=== PATIENT | female | born 1945 | race Caucasian/White ===

== ENCOUNTER 2017-11-07 20:48 | Inpatient (IN) | payer MEDICARE, MEDICAID ==
[~2017-11-07] VITALS: Ht 149.9 cm; Wt 61.0 kg
[~2017-11-07 20:48] MED LIST: ALBU8.5H8 IH; AZIT250T PO; HYDR-569 PO; OMEP20CA10 PO; ZOL50T PO
[2017-11-07 21:27] LABS: BASOPHILS # (AUTO) 0.2 X10'3 (0-0.2); BASOPHILS % (AUTO) 0.7 % (0-1); EOSINOPHILS % (AUTO) 0 % (0-6); HEMATOCRIT 42.8 % (35.0-45.0); HEMOGLOBIN 14.6 g/dl (12.0-16.0); LYMPHOCYTES # (AUTO) 0.6 X10'3 (1.1-4.8); LYMPHOCYTES % (AUTO) 1.9 % (21-51); MEAN CORPUSCULAR HEMOGLOBIN 28.8 PG (27.0-31.0); MEAN CORPUSCULAR HGB CONC 34.1 % (33.0-36.5); MEAN CORPUSCULAR VOLUME 84.6 FL (78-98); MEAN PLATELET VOLUME 6.9 FL (7.4-10.4); MONOCYTES # (AUTO) 0.3 X10'3 (0-0.9); NEUTROPHILS # (AUTO) 30.2 X10'3 (1.8-7.7); NEUTROPHILS % (AUTO) 96.4 % (42-75); PLATELET COUNT 496 X10'3 (140-440); RED BLOOD COUNT 5.06 X10'6 (4.20-5.60); RED CELL DISTRIBUTION WIDTH 14.8 % (11.5-14.5)
[2017-11-07 21:37] LABS: WHITE BLOOD COUNT 31.3 X10'3 (4.5-11.0)
[2017-11-07 21:39] LABS: PARTIAL THROMBOPLASTIN TIME 28 SECONDS (22-32); PROTHROMBIN TIME 10.8 SECONDS (9.0-12.0)
[2017-11-07] MEDS ORDERED: albuterol 2.5 MG/3 ML nebule CONTNEB PRN (21:40)
[2017-11-07] MEDS ORDERED: ipratropium 0.5 MG/2.5ML nebule IH ONE (21:40)
[2017-11-07] MEDS ORDERED: methylPREDNISolone sod succ 125mg/2ml vial IV ONE (21:40)
[2017-11-07 21:43] LABS: GLUCOSE 164 MG/DL (70-104)
[2017-11-07 21:44] LABS: ALANINE AMINOTRANSFERASE 20 U/L (12-78); ALBUMIN 3.7 G/DL (3.4-5.0); ALBUMIN/GLOBULIN RATIO 0.9 (1.1-1.5); ALKALINE PHOSPHATASE 86 IU/L (46-116); ANION GAP 14 (8-16); ASPARTATE AMINO TRANSFERASE 11 U/L (10-37); BLOOD UREA NITROGEN 17 MG/DL (7-18); BUN/CREATININE RATIO 17.9 (6.6-38.0); CALCIUM 9.3 MG/DL (8.5-10.1); CHLORIDE 97 MMOL/L (99-107); CREATININE 0.95 MG/DL (0.40-0.90); POTASSIUM 3.4 MMOL/L (3.5-5.1); SODIUM 136 MMOL/L (135-145); TOTAL CARBON DIOXIDE 25.3 MMOL/L (24-32); eGFR 58 ML/MIN
[2017-11-07 22:00] LABS: TOTAL CELLS COUNTED 100
[2017-11-07 22:02] LABS: PLATELET ESTIMATE INCREASED; TOXIC GRANULATION 1+; TOXIC VACUOLATION 1+
[2017-11-07] MEDS ORDERED: potassium chloride 10mEq CAPSULE.SA PO SCH (22:40)
[2017-11-07] MEDS ORDERED: potassium Cl 20 mEq SR tablet PO STA (22:53)
[2017-11-07] MEDS ORDERED: levoFLOXACIN-Levaquin 750MG/D5 150 ML IV SCH (22:58)
[2017-11-07] MEDS ORDERED: mag hydrox/Alum hydrox/simeth 30ml oral suspension PO PRN (23:55)
[2017-11-07] MEDS ORDERED: dextrose 50%-water 50ml dispensing syringe IV PRN ×2 (23:55)
[2017-11-07] MEDS ORDERED: ipratropium/albuterol 3ml nebule NEB PRN (23:55)
[2017-11-07] MEDS ORDERED: acetaminophen 325mg tablet PO PRN (23:55)
[2017-11-07] MEDS ORDERED: magnesium 4gm in 100ml NS 100 ML IV PRN (23:55)
[2017-11-07] MEDS ORDERED: glucagon, human recombinant 1mg kit SUBCUT PRN (23:55)
[2017-11-07] MEDS ORDERED: potassium Cl 20 mEq SR tablet PO PRN ×2 (23:55)
[2017-11-07] MEDS ORDERED: magnesium hydroxide 30ml (MOM) UD suspension PO PRN (23:55)
[2017-11-07] MEDS ORDERED: magnesium 2GM in 50ml NS 50 ML IV PRN (23:55)
[2017-11-07] MEDS ORDERED: insulin Lispro (HumaLOG) vial - multi-dose SQ SCH (23:55)
[2017-11-07] MEDS ORDERED: potassium Cl 40MEQ/NS 500ml 500 ML IV PRN ×2 (23:55)
[2017-11-07] MEDS ORDERED: dextrose ORAL solution 15 GM/59 ML bottle PO PRN ×2 (23:55)
[2017-11-07] MEDS ORDERED: MESSAGE TO PHARMACY PO ONE (23:55)
[2017-11-07] MEDS ORDERED: ondansetron/PF 4mg/2ml inj IV PRN (23:55)
[2017-11-08] MEDS: heparin, porcine 5000 units/ml vial SQ SCH ×3 (00:28→17:43)
[2017-11-08] MEDS: metroNIDAZOLE-Flagyl 500mg/NS 100 ML IV SCH ×3 (00:32→17:38)
[2017-11-08] MEDS: methylPREDNISolone sod succ 125mg/2ml vial IV SCH ×4 (02:31→20:48)
[2017-11-08 03:04] LABS: BASOPHILS # (AUTO) 0.1 X10'3 (0-0.2); BASOPHILS % (AUTO) 0.5 % (0-1); EOSINOPHILS # (AUTO) 0.2 X10'3 (0-0.9); EOSINOPHILS % (AUTO) 0.6 % (0-6); HEMATOCRIT 40.7 % (35.0-45.0); LYMPHOCYTES # (AUTO) 0.4 X10'3 (1.1-4.8); LYMPHOCYTES % (AUTO) 1.3 % (21-51); MEAN CORPUSCULAR HEMOGLOBIN 29.1 PG (27.0-31.0); MEAN CORPUSCULAR HGB CONC 34.5 % (33.0-36.5); MEAN CORPUSCULAR VOLUME 84.2 FL (78-98); MEAN PLATELET VOLUME 7.1 FL (7.4-10.4); MONOCYTES # (AUTO) 0.9 X10'3 (0-0.9); MONOCYTES % (AUTO) 2.8 % (2-12); NEUTROPHILS # (AUTO) 29.5 X10'3 (1.8-7.7); NEUTROPHILS % (AUTO) 94.8 % (42-75); PLATELET COUNT 466 X10'3 (140-440); RED BLOOD COUNT 4.83 X10'6 (4.20-5.60)
[2017-11-08 03:11] LABS: WHITE BLOOD COUNT 31.1 X10'3 (4.5-11.0)
[2017-11-08 03:13] LABS: HEMOGLOBIN A1C 5.9 % (4.5-6.2)
[2017-11-08 03:42] LABS: ALANINE AMINOTRANSFERASE 17 U/L (12-78); ALBUMIN 3.2 G/DL (3.4-5.0); ALBUMIN/GLOBULIN RATIO 0.7 (1.1-1.5); ALKALINE PHOSPHATASE 80 IU/L (46-116); ANION GAP 13 (8-16); ASPARTATE AMINO TRANSFERASE 11 U/L (10-37); BILIRUBIN,TOTAL 1.3 MG/DL (0.1-1.0); BLOOD UREA NITROGEN 16 MG/DL (7-18); BUN/CREATININE RATIO 15.4 (6.6-38.0); CALCIUM 9.2 MG/DL (8.5-10.1); CHLORIDE 99 MMOL/L (99-107); CREATININE 1.04 MG/DL (0.40-0.90); GLUCOSE 185 MG/DL (70-104); MAGNESIUM 1.8 MG/DL (1.5-2.4); POTASSIUM 3.5 MMOL/L (3.5-5.1); SODIUM 136 MMOL/L (135-145); TOTAL CARBON DIOXIDE 24.2 MMOL/L (24-32); TOTAL PROTEIN 7.5 G/DL (6.4-8.2); eGFR 52 ML/MIN
[2017-11-08] MEDS: ziprasidone IM 20mg inj **IM only IM SCH (04:43)
[2017-11-08] MEDS: pantoprazole 40 MG vial IV SCH (05:58)
[2017-11-08] MEDS: K and/or MAG REPLACEMENT MC SCH (08:00)
[2017-11-08] MEDS: lactobacillus rhamnosus 10,000 MMU CELLS/CAPSULE PO SCH ×2 (08:09→20:48)
[2017-11-08] MEDS ORDERED: ESCI20TA PO (09:24)
[2017-11-08] MEDS ORDERED: FLUT50DI PO (09:24)
[2017-11-08] MEDS ORDERED: OMEP20TA5 PO (09:24)
[2017-11-08] MEDS ORDERED: OXYB5TAB11 PO (09:24)
[2017-11-08] MEDS ORDERED: AZIT-57 PO (09:24)
[2017-11-08] MEDS ORDERED: IPRA3AMP IH (09:24)
[2017-11-08] MEDS ORDERED: CYCL5TAB PO (09:24)
[2017-11-08] MEDS: HYDROcodone/acetaminophen 5mg/325mg tablet PO PRN (17:43)
[2017-11-08 20:00] VITALS: BP 117/53
[2017-11-08] MEDS: insulin glargine (Lantus) pen - multi-dose SQ SCH (21:00)
[2017-11-09] VITALS: BP 110/58
[2017-11-09] MEDS: heparin, porcine 5000 units/ml vial SQ SCH ×3 (00:03→15:42)
[2017-11-09] MEDS: metroNIDAZOLE-Flagyl 500mg/NS 100 ML IV SCH ×3 (00:11→15:41)
[2017-11-09] MEDS: methylPREDNISolone sod succ 125mg/2ml vial IV SCH ×2 (02:36→07:54)
[2017-11-09] MEDS: ziprasidone IM 20mg inj **IM only IM SCH (04:15)
[2017-11-09 05:58] LABS: BASOPHILS # (AUTO) 0.3 X10'3 (0-0.2); BASOPHILS % (AUTO) 1.2 % (0-1); EOSINOPHILS # (AUTO) 0.3 X10'3 (0-0.9); EOSINOPHILS % (AUTO) 1.1 % (0-6); HEMATOCRIT 34.9 % (35.0-45.0); HEMOGLOBIN 12.2 g/dl (12.0-16.0); LYMPHOCYTES # (AUTO) 0.5 X10'3 (1.1-4.8); LYMPHOCYTES % (AUTO) 2.1 % (21-51); MEAN CORPUSCULAR HEMOGLOBIN 29.5 PG (27.0-31.0); MEAN CORPUSCULAR HGB CONC 34.8 % (33.0-36.5); MEAN CORPUSCULAR VOLUME 84.6 FL (78-98); MEAN PLATELET VOLUME 7.7 FL (7.4-10.4); MONOCYTES # (AUTO) 0.7 X10'3 (0-0.9); MONOCYTES % (AUTO) 2.8 % (2-12); NEUTROPHILS # (AUTO) 23.8 X10'3 (1.8-7.7); NEUTROPHILS % (AUTO) 92.8 % (42-75); PLATELET COUNT 394 X10'3 (140-440); RED BLOOD COUNT 4.13 X10'6 (4.20-5.60); RED CELL DISTRIBUTION WIDTH 15.4 % (11.5-14.5)
[2017-11-09 06:35] LABS: WHITE BLOOD COUNT 25.7 X10'3 (4.5-11.0)
[2017-11-09 06:37] LABS: ALANINE AMINOTRANSFERASE 11 U/L (12-78); ALBUMIN 2.6 G/DL (3.4-5.0); ALBUMIN/GLOBULIN RATIO 0.7 (1.1-1.5); ALKALINE PHOSPHATASE 65 IU/L (46-116); ANION GAP 7 (8-16); ASPARTATE AMINO TRANSFERASE 9 U/L (10-37); BILIRUBIN,TOTAL 0.6 MG/DL (0.1-1.0); BLOOD UREA NITROGEN 23 MG/DL (7-18); BUN/CREATININE RATIO 25.8 (6.6-38.0); CHLORIDE 106 MMOL/L (99-107); CREATININE 0.89 MG/DL (0.40-0.90); GLUCOSE 137 MG/DL (70-104); MAGNESIUM 2.3 MG/DL (1.5-2.4); POTASSIUM 4.5 MMOL/L (3.5-5.1); SODIUM 139 MMOL/L (135-145); TOTAL CARBON DIOXIDE 25.7 MMOL/L (24-32); TOTAL PROTEIN 6.3 G/DL (6.4-8.2); eGFR 63 ML/MIN
[2017-11-09 06:51] VITALS: BP 117/69
[2017-11-09] MEDS: pantoprazole 40 MG vial IV SCH (07:54)
[2017-11-09] MEDS: lactobacillus rhamnosus 10,000 MMU CELLS/CAPSULE PO SCH ×2 (07:54→20:43)
[2017-11-09] MEDS: K and/or MAG REPLACEMENT MC SCH (07:55)
[2017-11-09 08:31] LABS: PLATELET ESTIMATE NORMAL; TOTAL CELLS COUNTED 100
[2017-11-09 08:32] LABS: TOXIC GRANULATION 2+; TOXIC VACUOLATION FEW
[2017-11-09 11:50] VITALS: BP 110/65
[2017-11-09] MEDS: methylPREDNISolone sod succ/PF 40mg inj. IV SCH (15:41)
[2017-11-09 20:00] VITALS: BP 146/81
[2017-11-09] MEDS ORDERED: levoFLOXACIN-Levaquin 750MG/D5 150 ML IV SCH (20:00)
[2017-11-09] MEDS: insulin glargine (Lantus) pen - multi-dose SQ SCH (21:00)
[2017-11-09] MEDS: HYDROcodone/acetaminophen 5mg/325mg tablet PO PRN (21:49)
[2017-11-10] VITALS: BP 125/57
[2017-11-10] MEDS: metroNIDAZOLE-Flagyl 500mg/NS 100 ML IV SCH ×2 (01:27→07:26)
[2017-11-10] MEDS: heparin, porcine 5000 units/ml vial SQ SCH ×3 (01:28→16:56)
[2017-11-10] MEDS: methylPREDNISolone sod succ/PF 40mg inj. IV SCH ×3 (01:28→16:56)
[2017-11-10] MEDS: pantoprazole 40 MG vial IV SCH (05:25)
[2017-11-10 05:48] LABS: BASOPHILS # (AUTO) 0.1 X10'3 (0-0.2); BASOPHILS % (AUTO) 0.5 % (0-1); EOSINOPHILS # (AUTO) 0.1 X10'3 (0-0.9); EOSINOPHILS % (AUTO) 0.4 % (0-6); HEMATOCRIT 36.3 % (35.0-45.0); HEMOGLOBIN 12.5 g/dl (12.0-16.0); LYMPHOCYTES # (AUTO) 0.5 X10'3 (1.1-4.8); LYMPHOCYTES % (AUTO) 2.1 % (21-51); MEAN CORPUSCULAR HEMOGLOBIN 29.3 PG (27.0-31.0); MEAN CORPUSCULAR HGB CONC 34.4 % (33.0-36.5); MEAN CORPUSCULAR VOLUME 85.1 FL (78-98); MEAN PLATELET VOLUME 7.8 FL (7.4-10.4); MONOCYTES # (AUTO) 0.6 X10'3 (0-0.9); MONOCYTES % (AUTO) 2.7 % (2-12); NEUTROPHILS % (AUTO) 94.3 % (42-75); PLATELET COUNT 429 X10'3 (140-440); RED BLOOD COUNT 4.27 X10'6 (4.20-5.60); RED CELL DISTRIBUTION WIDTH 15.5 % (11.5-14.5); WHITE BLOOD COUNT 23.3 X10'3 (4.5-11.0)
[2017-11-10 06:22] LABS: ALANINE AMINOTRANSFERASE 15 U/L (12-78); ALBUMIN 2.5 G/DL (3.4-5.0); ALBUMIN/GLOBULIN RATIO 0.7 (1.1-1.5); ALKALINE PHOSPHATASE 67 IU/L (46-116); ANION GAP 10 (8-16); ASPARTATE AMINO TRANSFERASE 11 U/L (10-37); BILIRUBIN,TOTAL 0.6 MG/DL (0.1-1.0); BLOOD UREA NITROGEN 22 MG/DL (7-18); BUN/CREATININE RATIO 29.3 (6.6-38.0); CALCIUM 8.8 MG/DL (8.5-10.1); CHLORIDE 106 MMOL/L (99-107); CREATININE 0.75 MG/DL (0.40-0.90); GLUCOSE 114 MG/DL (70-104); MAGNESIUM 2.2 MG/DL (1.5-2.4); POTASSIUM 4.2 MMOL/L (3.5-5.1); SODIUM 141 MMOL/L (135-145); TOTAL CARBON DIOXIDE 25.2 MMOL/L (24-32); TOTAL PROTEIN 6.1 G/DL (6.4-8.2); eGFR 76 ML/MIN
[2017-11-10 07:15] VITALS: BP 110/64
[2017-11-10] MEDS: lactobacillus rhamnosus 10,000 MMU CELLS/CAPSULE PO SCH ×2 (07:24→19:42)
[2017-11-10] MEDS: K and/or MAG REPLACEMENT MC SCH (08:00)
[2017-11-10 11:30] VITALS: BP 130/71
[2017-11-10] MEDS: HYDROcodone/acetaminophen 5mg/325mg tablet PO PRN (19:43)
[2017-11-10 20:00] VITALS: BP 160/93
[2017-11-11 00:01] VITALS: BP 135/76
[2017-11-11] MEDS: methylPREDNISolone sod succ/PF 40mg inj. IV SCH ×3 (00:26→19:49)
[2017-11-11] MEDS: heparin, porcine 5000 units/ml vial SQ SCH ×3 (00:26→16:00)
[2017-11-11 05:28] LABS: BASOPHILS % (AUTO) 0.1 % (0-1); EOSINOPHILS # (AUTO) 0.3 X10'3 (0-0.9); EOSINOPHILS % (AUTO) 1.7 % (0-6); HEMATOCRIT 37.3 % (35.0-45.0); HEMOGLOBIN 12.9 g/dl (12.0-16.0); LYMPHOCYTES # (AUTO) 0.5 X10'3 (1.1-4.8); LYMPHOCYTES % (AUTO) 2.7 % (21-51); MEAN CORPUSCULAR HEMOGLOBIN 29.2 PG (27.0-31.0); MEAN CORPUSCULAR HGB CONC 34.5 % (33.0-36.5); MEAN CORPUSCULAR VOLUME 84.7 FL (78-98); MEAN PLATELET VOLUME 7.5 FL (7.4-10.4); MONOCYTES # (AUTO) 0.6 X10'3 (0-0.9); MONOCYTES % (AUTO) 3.6 % (2-12); NEUTROPHILS # (AUTO) 15.5 X10'3 (1.8-7.7); NEUTROPHILS % (AUTO) 91.9 % (42-75); PLATELET COUNT 485 X10'3 (140-440); RED CELL DISTRIBUTION WIDTH 15.7 % (11.5-14.5); WHITE BLOOD COUNT 16.9 X10'3 (4.5-11.0)
[2017-11-11] MEDS: pantoprazole 40 MG vial IV SCH (05:34)
[2017-11-11 05:46] LABS: ALANINE AMINOTRANSFERASE 15 U/L (12-78); ALBUMIN 2.4 G/DL (3.4-5.0); ALBUMIN/GLOBULIN RATIO 0.7 (1.1-1.5); ALKALINE PHOSPHATASE 57 IU/L (46-116); ANION GAP 8 (8-16); ASPARTATE AMINO TRANSFERASE 10 U/L (10-37); BILIRUBIN,TOTAL 0.5 MG/DL (0.1-1.0); BLOOD UREA NITROGEN 22 MG/DL (7-18); CALCIUM 8.7 MG/DL (8.5-10.1); CHLORIDE 105 MMOL/L (99-107); CREATININE 0.71 MG/DL (0.40-0.90); GLUCOSE 127 MG/DL (70-104); MAGNESIUM 2.3 MG/DL (1.5-2.4); POTASSIUM 4.1 MMOL/L (3.5-5.1); SODIUM 141 MMOL/L (135-145); TOTAL CARBON DIOXIDE 27.6 MMOL/L (24-32); TOTAL PROTEIN 5.9 G/DL (6.4-8.2); eGFR 81 ML/MIN
[2017-11-11] MEDS: lactobacillus rhamnosus 10,000 MMU CELLS/CAPSULE PO SCH ×2 (07:38→19:49)
[2017-11-11] MEDS: K and/or MAG REPLACEMENT MC SCH (08:00)
[2017-11-11] MEDS: levoFLOXACIN-Levaquin 750MG/D5 150 ML IV SCH (08:06)
[2017-11-11 09:55] VITALS: BP 143/83
[2017-11-11 11:58] VITALS: BP 144/88
[2017-11-11 18:00] VITALS: BP 146/88
[2017-11-11] MEDS: HYDROcodone/acetaminophen 5mg/325mg tablet PO PRN (19:48)
[2017-11-12] VITALS: BP 127/89
[2017-11-12] MEDS: heparin, porcine 5000 units/ml vial SQ SCH ×3 (00:01→16:25)
[2017-11-12 05:35] LABS: BASOPHILS # (AUTO) 0.1 X10'3 (0-0.2); BASOPHILS % (AUTO) 0.8 % (0-1); EOSINOPHILS # (AUTO) 0.2 X10'3 (0-0.9); EOSINOPHILS % (AUTO) 1.1 % (0-6); HEMATOCRIT 39.6 % (35.0-45.0); HEMOGLOBIN 13.6 g/dl (12.0-16.0); LYMPHOCYTES # (AUTO) 0.7 X10'3 (1.1-4.8); LYMPHOCYTES % (AUTO) 3.9 % (21-51); MEAN CORPUSCULAR HEMOGLOBIN 29.1 PG (27.0-31.0); MEAN CORPUSCULAR HGB CONC 34.3 % (33.0-36.5); MEAN CORPUSCULAR VOLUME 84.8 FL (78-98); MEAN PLATELET VOLUME 7.5 FL (7.4-10.4); MONOCYTES # (AUTO) 0.7 X10'3 (0-0.9); MONOCYTES % (AUTO) 4.1 % (2-12); NEUTROPHILS # (AUTO) 15.3 X10'3 (1.8-7.7); NEUTROPHILS % (AUTO) 90.1 % (42-75); PLATELET COUNT 505 X10'3 (140-440); RED BLOOD COUNT 4.67 X10'6 (4.20-5.60); RED CELL DISTRIBUTION WIDTH 15.7 % (11.5-14.5); WHITE BLOOD COUNT 16.9 X10'3 (4.5-11.0)
[2017-11-12 05:49] LABS: ALANINE AMINOTRANSFERASE 19 U/L (12-78); ALBUMIN 2.6 G/DL (3.4-5.0); ALBUMIN/GLOBULIN RATIO 0.7 (1.1-1.5); ALKALINE PHOSPHATASE 56 IU/L (46-116); ANION GAP 7 (8-16); ASPARTATE AMINO TRANSFERASE 12 U/L (10-37); BILIRUBIN,TOTAL 0.6 MG/DL (0.1-1.0); BLOOD UREA NITROGEN 21 MG/DL (7-18); BUN/CREATININE RATIO 32.3 (6.6-38.0); CHLORIDE 104 MMOL/L (99-107); CREATININE 0.65 MG/DL (0.40-0.90); GLUCOSE 124 MG/DL (70-104); MAGNESIUM 2.4 MG/DL (1.5-2.4); POTASSIUM 4.5 MMOL/L (3.5-5.1); SODIUM 139 MMOL/L (135-145); TOTAL PROTEIN 6.1 G/DL (6.4-8.2); eGFR 90 ML/MIN
[2017-11-12 07:00] VITALS: BP 170/95
[2017-11-12] MEDS: K and/or MAG REPLACEMENT MC SCH (08:00)
[2017-11-12] MEDS: levoFLOXACIN-Levaquin 750MG/D5 150 ML IV SCH (08:16)
[2017-11-12] MEDS: methylPREDNISolone sod succ/PF 40mg inj. IV SCH ×2 (08:16→21:02)
[2017-11-12] MEDS: pantoprazole 40mg Tablet.DR PO SCH (08:17)
[2017-11-12] MEDS: lactobacillus rhamnosus 10,000 MMU CELLS/CAPSULE PO SCH ×2 (08:17→21:02)
[2017-11-12 11:28] VITALS: BP 144/87
[2017-11-12 18:00] VITALS: BP 125/86
[2017-11-13] VITALS: BP 156/95
[2017-11-13] MEDS: heparin, porcine 5000 units/ml vial SQ SCH ×3 (00:52→16:13)
[2017-11-13] MEDS: K and/or MAG REPLACEMENT MC SCH (08:00)
[2017-11-13] MEDS: pantoprazole 40mg Tablet.DR PO SCH (08:11)
[2017-11-13] MEDS: levoFLOXACIN-Levaquin 750MG/D5 150 ML IV SCH (08:12)
[2017-11-13] MEDS: methylPREDNISolone sod succ/PF 40mg inj. IV SCH (08:12)
[2017-11-13] MEDS: lactobacillus rhamnosus 10,000 MMU CELLS/CAPSULE PO SCH ×2 (08:13→20:32)
[2017-11-13 08:34] VITALS: BP 141/71
[2017-11-13 09:14] LABS: BASOPHILS # (AUTO) 0.2 X10'3 (0-0.2); BASOPHILS % (AUTO) 0.7 % (0-1); EOSINOPHILS # (AUTO) 0.1 X10'3 (0-0.9); EOSINOPHILS % (AUTO) 0.4 % (0-6); HEMATOCRIT 44.5 % (35.0-45.0); HEMOGLOBIN 14.9 g/dl (12.0-16.0); LYMPHOCYTES # (AUTO) 0.9 X10'3 (1.1-4.8); MEAN CORPUSCULAR HEMOGLOBIN 28.6 PG (27.0-31.0); MEAN CORPUSCULAR HGB CONC 33.5 % (33.0-36.5); MEAN CORPUSCULAR VOLUME 85.3 FL (78-98); MEAN PLATELET VOLUME 7.6 FL (7.4-10.4); MONOCYTES # (AUTO) 0.7 X10'3 (0-0.9); MONOCYTES % (AUTO) 3.3 % (2-12); NEUTROPHILS # (AUTO) 20.9 X10'3 (1.8-7.7); NEUTROPHILS % (AUTO) 91.6 % (42-75); PLATELET COUNT 646 X10'3 (140-440); RED BLOOD COUNT 5.22 X10'6 (4.20-5.60); RED CELL DISTRIBUTION WIDTH 15.6 % (11.5-14.5); WHITE BLOOD COUNT 22.9 X10'3 (4.5-11.0)
[2017-11-13 09:19] LABS: ALANINE AMINOTRANSFERASE 18 U/L (12-78); ALBUMIN 2.9 G/DL (3.4-5.0); ALBUMIN/GLOBULIN RATIO 0.8 (1.1-1.5); ALKALINE PHOSPHATASE 61 IU/L (46-116); ANION GAP 11 (8-16); ASPARTATE AMINO TRANSFERASE 14 U/L (10-37); BILIRUBIN,TOTAL 0.7 MG/DL (0.1-1.0); BLOOD UREA NITROGEN 23 MG/DL (7-18); BUN/CREATININE RATIO 29.1 (6.6-38.0); CALCIUM 9.3 MG/DL (8.5-10.1); CHLORIDE 103 MMOL/L (99-107); CREATININE 0.79 MG/DL (0.40-0.90); GLUCOSE 156 MG/DL (70-104); SODIUM 140 MMOL/L (135-145); TOTAL CARBON DIOXIDE 25.7 MMOL/L (24-32); TOTAL PROTEIN 6.7 G/DL (6.4-8.2); eGFR 72 ML/MIN
[2017-11-13 13:26] VITALS: BP 149/92
[2017-11-13 19:10] VITALS: BP 148/94
[2017-11-13] MEDS: oxybutynin 5mg tablet PO SCH (20:32)
[2017-11-13] MEDS: HYDROcodone/acetaminophen 5mg/325mg tablet PO PRN (20:34)
[2017-11-13] MEDS ORDERED: cyclobenzaprine 10mg tablet PO PRN (21:00)
[2017-11-14] VITALS: BP 112/81
[2017-11-14] MEDS: heparin, porcine 5000 units/ml vial SQ SCH ×3 (00:27→16:16)
[2017-11-14 06:20] LABS: MAGNESIUM 2.3 MG/DL (1.5-2.4)
[2017-11-14] MEDS: K and/or MAG REPLACEMENT MC SCH (08:00)
[2017-11-14] MEDS: fluticasone furoate 100MCG/puff inhaler IH SCH (08:00)
[2017-11-14] MEDS ORDERED: non-formulary drug (Omeprazole 2 TAB) PO SCH (08:00)
[2017-11-14] MEDS: lactobacillus rhamnosus 10,000 MMU CELLS/CAPSULE PO SCH ×2 (08:17→20:32)
[2017-11-14] MEDS: oxybutynin 5mg tablet PO SCH ×2 (08:17→20:32)
[2017-11-14] MEDS: citalopram 20mg tablet PO SCH (08:18)
[2017-11-14] MEDS: pantoprazole 40mg Tablet.DR PO SCH (08:18)
[2017-11-14] MEDS: levoFLOXACIN-Levaquin 750MG/D5 150 ML IV SCH (08:20)
[2017-11-14 08:29] VITALS: BP 127/83
[2017-11-14] MEDS ORDERED: prednisone 10mg tablet PO SCH (08:30)
[2017-11-14 08:41] LABS: ALANINE AMINOTRANSFERASE 22 U/L (12-78); ALBUMIN 2.5 G/DL (3.4-5.0); ALBUMIN/GLOBULIN RATIO 0.8 (1.1-1.5); ALKALINE PHOSPHATASE 55 IU/L (46-116); ANION GAP 9 (8-16); ASPARTATE AMINO TRANSFERASE 17 U/L (10-37); BILIRUBIN,TOTAL 0.6 MG/DL (0.1-1.0); BLOOD UREA NITROGEN 26 MG/DL (7-18); BUN/CREATININE RATIO 32.5 (6.6-38.0); CALCIUM 8.9 MG/DL (8.5-10.1); CHLORIDE 104 MMOL/L (99-107); GLUCOSE 82 MG/DL (70-104); POTASSIUM 4.3 MMOL/L (3.5-5.1); SODIUM 140 MMOL/L (135-145); TOTAL CARBON DIOXIDE 27.2 MMOL/L (24-32); TOTAL PROTEIN 5.5 G/DL (6.4-8.2); eGFR 71 ML/MIN
[2017-11-14 09:40] LABS: BASOPHILS # (AUTO) 0.1 X10'3 (0-0.2); BASOPHILS % (AUTO) 0.3 % (0-1); EOSINOPHILS # (AUTO) 0.3 X10'3 (0-0.9); EOSINOPHILS % (AUTO) 1.1 % (0-6); HEMATOCRIT 41.5 % (35.0-45.0); HEMOGLOBIN 14.1 g/dl (12.0-16.0); LYMPHOCYTES # (AUTO) 1.8 X10'3 (1.1-4.8); LYMPHOCYTES % (AUTO) 7.5 % (21-51); MEAN CORPUSCULAR HEMOGLOBIN 28.8 PG (27.0-31.0); MEAN CORPUSCULAR HGB CONC 33.9 % (33.0-36.5); MEAN CORPUSCULAR VOLUME 84.9 FL (78-98); MEAN PLATELET VOLUME 7.8 FL (7.4-10.4); MONOCYTES % (AUTO) 4.2 % (2-12); NEUTROPHILS # (AUTO) 20.7 X10'3 (1.8-7.7); NEUTROPHILS % (AUTO) 86.9 % (42-75); PLATELET COUNT 507 X10'3 (140-440); RED BLOOD COUNT 4.89 X10'6 (4.20-5.60); RED CELL DISTRIBUTION WIDTH 15.4 % (11.5-14.5); WHITE BLOOD COUNT 23.9 X10'3 (4.5-11.0)
[2017-11-14 11:24] VITALS: BP 94/65
[2017-11-14 11:34] VITALS: BP 99/67
[2017-11-14 11:37] LABS: PLATELET ESTIMATE INCREASED; TOTAL CELLS COUNTED 100
[2017-11-14] MEDS ORDERED: benzonatate 100mg capsule PO PRN (13:30)
[2017-11-14 19:20] VITALS: BP 131/70
[2017-11-15] VITALS: BP 131/70
[2017-11-15] MEDS: heparin, porcine 5000 units/ml vial SQ SCH ×4 (00:01→23:11)
[2017-11-15 07:07] VITALS: BP 113/64
[2017-11-15] MEDS ORDERED: levoFLOXACIN-Levaquin 750MG/D5 150 ML IV SCH (08:00)
[2017-11-15] MEDS: fluticasone furoate 100MCG/puff inhaler IH SCH (08:00)
[2017-11-15] MEDS: K and/or MAG REPLACEMENT MC SCH (08:00)
[2017-11-15] MEDS: lactobacillus rhamnosus 10,000 MMU CELLS/CAPSULE PO SCH ×2 (08:34→20:04)
[2017-11-15] MEDS: citalopram 20mg tablet PO SCH (08:34)
[2017-11-15] MEDS: oxybutynin 5mg tablet PO SCH ×2 (08:34→20:04)
[2017-11-15] MEDS: pantoprazole 40mg Tablet.DR PO SCH (08:35)
[2017-11-15] MEDS: HYDROcodone/acetaminophen 5mg/325mg tablet PO PRN ×2 (10:17→16:31)
[2017-11-15 11:00] VITALS: BP_SYST 104; BP_SYST 108; BP_DIAS 54; BP_DIAS 76
[2017-11-15 13:36] VITALS: BP 97/66
[2017-11-15 20:00] VITALS: BP 123/53
[2017-11-15] MEDS: piperacillin/tazo 3.375gm/50ml 50 ML IV SCH (20:04)
[2017-11-16] VITALS: BP 125/58
[2017-11-16] MEDS: piperacillin/tazo 3.375gm/50ml 50 ML IV SCH ×4 (02:14→22:00)
[2017-11-16] MEDS: pantoprazole 40mg Tablet.DR PO SCH (07:37)
[2017-11-16] MEDS: oxybutynin 5mg tablet PO SCH ×2 (07:38→20:01)
[2017-11-16] MEDS: citalopram 20mg tablet PO SCH (07:38)
[2017-11-16] MEDS: lactobacillus rhamnosus 10,000 MMU CELLS/CAPSULE PO SCH ×2 (07:38→20:02)
[2017-11-16] MEDS: HYDROcodone/acetaminophen 5mg/325mg tablet PO PRN ×2 (07:38→20:01)
[2017-11-16] MEDS: heparin, porcine 5000 units/ml vial SQ SCH ×3 (07:39→23:09)
[2017-11-16] MEDS ORDERED: levoFLOXACIN-Levaquin 750MG/D5 150 ML IV SCH (08:00)
[2017-11-16] MEDS: K and/or MAG REPLACEMENT MC SCH (08:00)
[2017-11-16 08:12] VITALS: BP 98/47
[2017-11-16] MEDS: fluticasone furoate 100MCG/puff inhaler IH SCH (09:23)
[2017-11-16 09:34] LABS: BASOPHILS % (AUTO) 3.6 % (0-1); EOSINOPHILS # (AUTO) 0.7 X10'3 (0-0.9); EOSINOPHILS % (AUTO) 2.6 % (0-6); HEMATOCRIT 38.8 % (35.0-45.0); HEMOGLOBIN 13.4 g/dl (12.0-16.0); LYMPHOCYTES # (AUTO) 0.9 X10'3 (1.1-4.8); LYMPHOCYTES % (AUTO) 3.4 % (21-51); MEAN CORPUSCULAR HEMOGLOBIN 29.1 PG (27.0-31.0); MEAN CORPUSCULAR HGB CONC 34.4 % (33.0-36.5); MEAN CORPUSCULAR VOLUME 84.4 FL (78-98); MEAN PLATELET VOLUME 6.8 FL (7.4-10.4); MONOCYTES # (AUTO) 1.7 X10'3 (0-0.9); NEUTROPHILS # (AUTO) 23.5 X10'3 (1.8-7.7); NEUTROPHILS % (AUTO) 84.4 % (42-75); PLATELET COUNT 416 X10'3 (140-440); RED CELL DISTRIBUTION WIDTH 15.1 % (11.5-14.5)
[2017-11-16 09:36] LABS: WHITE BLOOD COUNT 27.9 X10'3 (4.5-11.0)
[2017-11-16 11:11] LABS: PLATELET ESTIMATE NORMAL; TOTAL CELLS COUNTED 100
[2017-11-16 11:12] LABS: TOXIC GRANULATION 1+; TOXIC VACUOLATION FEW
[2017-11-16 11:20] VITALS: BP 118/67
[2017-11-16 12:00] VITALS: BP 118/67
[2017-11-16 20:00] VITALS: BP 141/69
[2017-11-17] VITALS: BP 132/57
[2017-11-17] MEDS: HYDROcodone/acetaminophen 5mg/325mg tablet PO PRN ×3 (02:55→23:07)
[2017-11-17] MEDS: piperacillin/tazo 3.375gm/50ml 50 ML IV SCH ×4 (04:23→23:01)
[2017-11-17 07:00] VITALS: BP 104/65
[2017-11-17] MEDS: K and/or MAG REPLACEMENT MC SCH (08:00)
[2017-11-17] MEDS: oxybutynin 5mg tablet PO SCH ×2 (08:11→21:03)
[2017-11-17] MEDS: citalopram 20mg tablet PO SCH (08:12)
[2017-11-17] MEDS: pantoprazole 40mg Tablet.DR PO SCH (08:12)
[2017-11-17] MEDS: nystatin 500,000 unit/5ML UD oral suspension PO SCH ×3 (08:12→21:03)
[2017-11-17] MEDS: lactobacillus rhamnosus 10,000 MMU CELLS/CAPSULE PO SCH ×2 (08:12→21:03)
[2017-11-17] MEDS: heparin, porcine 5000 units/ml vial SQ SCH ×2 (08:13→15:44)
[2017-11-17] MEDS: fluticasone furoate 100MCG/puff inhaler IH SCH (08:28)
[2017-11-17 11:00] VITALS: BP 102/68
[2017-11-17 11:27] LABS: BASOPHILS # (AUTO) 0.1 X10'3 (0-0.2); BASOPHILS % (AUTO) 0.4 % (0-1); EOSINOPHILS # (AUTO) 0.6 X10'3 (0-0.9); EOSINOPHILS % (AUTO) 2.3 % (0-6); HEMATOCRIT 34.1 % (35.0-45.0); HEMOGLOBIN 11.6 g/dl (12.0-16.0); LYMPHOCYTES # (AUTO) 0.9 X10'3 (1.1-4.8); LYMPHOCYTES % (AUTO) 3.6 % (21-51); MEAN CORPUSCULAR HEMOGLOBIN 29.5 PG (27.0-31.0); MEAN CORPUSCULAR HGB CONC 34.2 % (33.0-36.5); MEAN CORPUSCULAR VOLUME 86.3 FL (78-98); MEAN PLATELET VOLUME 7.6 FL (7.4-10.4); MONOCYTES # (AUTO) 0.9 X10'3 (0-0.9); MONOCYTES % (AUTO) 3.8 % (2-12); NEUTROPHILS # (AUTO) 22.3 X10'3 (1.8-7.7); NEUTROPHILS % (AUTO) 89.9 % (42-75); PLATELET COUNT 354 X10'3 (140-440); RED BLOOD COUNT 3.95 X10'6 (4.20-5.60); RED CELL DISTRIBUTION WIDTH 15.2 % (11.5-14.5); WHITE BLOOD COUNT 24.8 X10'3 (4.5-11.0)
[2017-11-17 11:41] LABS: ANISOCYTOSIS 1+; PLATELET ESTIMATE NORMAL; TOTAL CELLS COUNTED 100
[2017-11-17 18:00] VITALS: BP 107/70
[2017-11-18] VITALS: BP 111/72
[2017-11-18] MEDS: heparin, porcine 5000 units/ml vial SQ SCH ×4 (00:36→23:48)
[2017-11-18] MEDS: piperacillin/tazo 3.375gm/50ml 50 ML IV SCH ×4 (03:51→21:06)
[2017-11-18 07:13] VITALS: BP 95/59
[2017-11-18] MEDS: fluticasone furoate 100MCG/puff inhaler IH SCH (07:38)
[2017-11-18] MEDS: nystatin 500,000 unit/5ML UD oral suspension PO SCH ×3 (08:00→21:00)
[2017-11-18] MEDS: K and/or MAG REPLACEMENT MC SCH (08:00)
[2017-11-18 08:43] LABS: BASOPHILS # (AUTO) 0.1 X10'3 (0-0.2); BASOPHILS % (AUTO) 0.7 % (0-1); EOSINOPHILS # (AUTO) 0.4 X10'3 (0-0.9); EOSINOPHILS % (AUTO) 2.2 % (0-6); HEMATOCRIT 32.9 % (35.0-45.0); HEMOGLOBIN 11.4 g/dl (12.0-16.0); LYMPHOCYTES # (AUTO) 0.7 X10'3 (1.1-4.8); LYMPHOCYTES % (AUTO) 3.6 % (21-51); MEAN CORPUSCULAR HEMOGLOBIN 29.3 PG (27.0-31.0); MEAN CORPUSCULAR HGB CONC 34.5 % (33.0-36.5); MEAN CORPUSCULAR VOLUME 84.9 FL (78-98); MEAN PLATELET VOLUME 6.9 FL (7.4-10.4); MONOCYTES # (AUTO) 1.2 X10'3 (0-0.9); MONOCYTES % (AUTO) 6.2 % (2-12); NEUTROPHILS # (AUTO) 17.5 X10'3 (1.8-7.7); NEUTROPHILS % (AUTO) 87.3 % (42-75); PLATELET COUNT 380 X10'3 (140-440); RED BLOOD COUNT 3.88 X10'6 (4.20-5.60); RED CELL DISTRIBUTION WIDTH 14.9 % (11.5-14.5)
[2017-11-18] MEDS: lactobacillus rhamnosus 10,000 MMU CELLS/CAPSULE PO SCH ×2 (09:30→19:09)
[2017-11-18] MEDS: oxybutynin 5mg tablet PO SCH ×2 (09:30→19:09)
[2017-11-18] MEDS: pantoprazole 40mg Tablet.DR PO SCH (09:31)
[2017-11-18] MEDS: citalopram 20mg tablet PO SCH (09:31)
[2017-11-18 11:41] VITALS: BP 99/68
[2017-11-18 20:00] VITALS: BP 111/70
[2017-11-18] MEDS: HYDROcodone/acetaminophen 5mg/325mg tablet PO PRN (21:07)
[2017-11-19] VITALS (12 sets, daily range): BP systolic 97–111; BP diastolic 46–76
[2017-11-19] MEDS: piperacillin/tazo 3.375gm/50ml 50 ML IV SCH ×4 (04:13→22:31)
[2017-11-19 05:35] LABS: BASOPHILS % (AUTO) 0.1 % (0-1); EOSINOPHILS # (AUTO) 0.7 X10'3 (0-0.9); EOSINOPHILS % (AUTO) 4.9 % (0-6); HEMOGLOBIN 10.3 g/dl (12.0-16.0); LYMPHOCYTES # (AUTO) 0.8 X10'3 (1.1-4.8); LYMPHOCYTES % (AUTO) 6.1 % (21-51); MEAN CORPUSCULAR HEMOGLOBIN 28.8 PG (27.0-31.0); MEAN CORPUSCULAR HGB CONC 34.3 % (33.0-36.5); MEAN CORPUSCULAR VOLUME 84.2 FL (78-98); MEAN PLATELET VOLUME 6.8 FL (7.4-10.4); MONOCYTES # (AUTO) 1.3 X10'3 (0-0.9); MONOCYTES % (AUTO) 9.9 % (2-12); NEUTROPHILS # (AUTO) 10.5 X10'3 (1.8-7.7); PLATELET COUNT 337 X10'3 (140-440); RED BLOOD COUNT 3.56 X10'6 (4.20-5.60); RED CELL DISTRIBUTION WIDTH 15.2 % (11.5-14.5); WHITE BLOOD COUNT 13.2 X10'3 (4.5-11.0)
[2017-11-19] MEDS: pantoprazole 40mg Tablet.DR PO SCH (07:51)
[2017-11-19] MEDS: lactobacillus rhamnosus 10,000 MMU CELLS/CAPSULE PO SCH ×2 (07:51→20:38)
[2017-11-19] MEDS: citalopram 20mg tablet PO SCH (07:51)
[2017-11-19] MEDS: oxybutynin 5mg tablet PO SCH ×2 (07:51→20:38)
[2017-11-19] MEDS: HYDROcodone/acetaminophen 5mg/325mg tablet PO PRN ×2 (07:56→22:31)
[2017-11-19] MEDS: nystatin 500,000 unit/5ML UD oral suspension PO SCH ×3 (08:00→20:46)
[2017-11-19] MEDS: heparin, porcine 5000 units/ml vial SQ SCH ×3 (08:00→23:57)
[2017-11-19] MEDS: K and/or MAG REPLACEMENT MC SCH (08:00)
[2017-11-19] MEDS ORDERED: LIDOcaine 1% 30ml preserv. free vial SQ STA (12:14)
[2017-11-19 22:54] LABS: CLARITY,URINE CLEAR (Clear); COLOR,URINE YELLOW (Yellow); GLUCOSE, URINE NEGATIVE (Neg); KETONES,URINE NEGATIVE (Neg); LEUKOCYTE ESTERASE ,URINE NEGATIVE (Neg); NITRITES, URINE NEGATIVE (Neg); OCCULT BLOOD,URINE TRACE-LYSED (Neg); PH,URINE 7.5 (4.8-8.0); PROTEIN,URINE NEGATIVE (Neg); UROBILINOGEN,URINE 0.2 E.U/dL (0.2-1.0)
[2017-11-19 23:05] LABS: UA COLLECTION TYPE CLN CATCH MIDSTREAM
[2017-11-19 23:14] LABS: BACTERIA,URINE NONE SEEN /HPF (Neg); MUCUS STRANDS NONE SEEN /LPF (Neg); RBC,URINE 0-2 /HPF (0-2); SQUAMOUS EPITHELIAL CELL,UR FEW /LPF (FEW); WBC,URINE 0-4 /HPF (0-4); YEAST FEW /HPF (NEGATIVE)
[2017-11-20] VITALS: BP 100/72
[2017-11-20] MEDS: piperacillin/tazo 3.375gm/50ml 50 ML IV SCH ×4 (03:43→22:26)
[2017-11-20] MEDS: HYDROcodone/acetaminophen 5mg/325mg tablet PO PRN (03:47)
[2017-11-20] MEDS: K and/or MAG REPLACEMENT MC SCH (06:31)
[2017-11-20] MEDS: fluticasone furoate 100MCG/puff inhaler IH SCH ×2 (07:44→08:00)
[2017-11-20] MEDS: nystatin 500,000 unit/5ML UD oral suspension PO SCH ×3 (08:00→19:13)
[2017-11-20] MEDS: lactobacillus rhamnosus 10,000 MMU CELLS/CAPSULE PO SCH ×2 (08:18→19:18)
[2017-11-20] MEDS: pantoprazole 40mg Tablet.DR PO SCH (08:18)
[2017-11-20] MEDS: citalopram 20mg tablet PO SCH (08:18)
[2017-11-20] MEDS: oxybutynin 5mg tablet PO SCH ×2 (08:18→19:18)
[2017-11-20 08:30] VITALS: BP 124/77
[2017-11-20 11:51] VITALS: BP 106/66
[2017-11-20 18:00] VITALS: BP 121/67
[2017-11-21] VITALS: BP 115/71
[2017-11-21] MEDS: piperacillin/tazo 3.375gm/50ml 50 ML IV SCH ×2 (04:11→08:31)
[2017-11-21] MEDS: HYDROcodone/acetaminophen 5mg/325mg tablet PO PRN (04:11)
[2017-11-21 07:00] VITALS: BP 114/78
[2017-11-21] MEDS: K and/or MAG REPLACEMENT MC SCH (08:00)
[2017-11-21] MEDS: nystatin 500,000 unit/5ML UD oral suspension PO SCH ×2 (08:00→13:00)
[2017-11-21] MEDS: oxybutynin 5mg tablet PO SCH (08:32)
[2017-11-21] MEDS: lactobacillus rhamnosus 10,000 MMU CELLS/CAPSULE PO SCH (08:32)
[2017-11-21] MEDS: pantoprazole 40mg Tablet.DR PO SCH (08:32)
[2017-11-21] MEDS: heparin, porcine 5000 units/ml vial SQ SCH (08:32)
[2017-11-21] MEDS: citalopram 20mg tablet PO SCH (08:32)
[2017-11-21 12:00] VITALS: BP 114/66
[2017-11-21] MEDS ORDERED: VALA100027 PO (12:28)
[2017-11-21] MEDS ORDERED: AMOX-580 PO (12:28)
[2017-11-21] MEDS ORDERED: valacyclovir 500mg tablet PO SCH (20:00)
== END 2017-11-21 16:48 | disposition home health service (06) | DRG 871 ==
LOC: ER 20:49 → ED HOLD 23:54 → EDBEDREQ 11-08 17:18 → SUR 3N 11-08 18:44
PROVIDERS: ADMIT Family Medicine; ATTEND Family Medicine
PROC: 0W9B3ZZ Drainage of Left Pleural Cavity, Percutaneous Approach (ICD-10-PCS; principal; 2017-11-19)
DX: A41.9 Sepsis, unspecified organism (principal); G93.41 Metabolic encephalopathy; J96.01 Acute respiratory failure with hypoxia; J90 Pleural effusion, not elsewhere classified; J18.1 Lobar pneumonia, unspecified organism; J44.0 Chronic obstructive pulmonary disease with (acute) lower respiratory infection; J45.901 Unspecified asthma with (acute) exacerbation; B37.0 Candidal stomatitis; I45.81 Long QT syndrome; I35.0 Nonrheumatic aortic (valve) stenosis; J44.1 Chronic obstructive pulmonary disease with (acute) exacerbation; K21.9 Gastro-esophageal reflux disease without esophagitis; F32.9 Major depressive disorder, single episode, unspecified; G89.29 Other chronic pain; M54.9 Dorsalgia, unspecified; R62.50 Unspecified lack of expected normal physiological development in childhood; R79.89 Other specified abnormal findings of blood chemistry; T38.0X5A Adverse effect of glucocorticoids and synthetic analogues, initial encounter; Z88.8 Allergy status to other drugs, medicaments and biological substances; Z79.899 Other long term (current) drug therapy
CPT/HCPCS: 32555; 36415; 71045; 71046; 71250; 80053; 81001; 82948; 83036; 83605; 83735; 84145; 84484; 85025; 85610; 85730; 87040; 87070; 92616; 93005; 93306; 94640; 94667; 94760; A6258; C9113; J1644; J1815; J1956; J2543; J2920; J2930; J3486; J3490; J7030; J7512

== ENCOUNTER 2020-05-26 06:48 | Day surgery (SDC) | payer MEDICARE, MEDICAID ==
[2020-05-22 11:45] LABS: BASOPHILS # (AUTO) 0.1 X10'3 (0-0.2); BASOPHILS % (AUTO) 1.6 % (0-1); EOSINOPHILS # (AUTO) 0.3 X10'3 (0-0.9); HEMATOCRIT 40.5 % (35.0-45.0); HEMOGLOBIN 13.7 g/dl (12.0-16.0); LYMPHOCYTES % (AUTO) 16.6 % (21-51); MEAN CORPUSCULAR HGB CONC 33.9 g/dL (33.0-36.5); MEAN CORPUSCULAR VOLUME 88.7 FL (78-98); MEAN PLATELET VOLUME 7.1 FL (7.4-10.4); MONOCYTES # (AUTO) 0.4 X10'3 (0-0.9); MONOCYTES % (AUTO) 6.7 % (2-12); NEUTROPHILS # (AUTO) 4.1 X10'3 (1.8-7.7); NEUTROPHILS % (AUTO) 70.1 % (42-75); PLATELET COUNT 374 X10'3 (140-440); RED BLOOD COUNT 4.56 X10'6 (4.20-5.60); RED CELL DISTRIBUTION WIDTH 14.8 % (11.5-14.5); WHITE BLOOD COUNT 5.8 X10'3 (4.5-11.0)
[2020-05-22 11:57] LABS: ANION GAP 8 (8-16); BLOOD UREA NITROGEN 15 MG/DL (7-18); BUN/CREATININE RATIO 19.7 (6.6-38.0); CALCIUM 9.6 MG/DL (8.5-10.1); CHLORIDE 106 MMOL/L (99-107); CREATININE 0.76 MG/DL (0.40-0.90); GLUCOSE 97 MG/DL (70-104); POTASSIUM 4.2 MMOL/L (3.5-5.1); SODIUM 142 MMOL/L (135-145); TOTAL CARBON DIOXIDE 28.4 MMOL/L (24-32); eGFR 75 ML/MIN
[2020-05-22 12:01] LABS: PARTIAL THROMBOPLASTIN TIME 28 SECONDS (22-32)
[2020-05-26] VITALS (10 sets, daily range): BP systolic 94–128; BP diastolic 53–96
[~2020-05-26] VITALS: Ht 157.5 cm; Wt 61.3 kg
[~2020-05-26 06:48] MED LIST changes: -ALBU8.5H8 IH; -AZIT250T PO; +CYCL5TAB PO; +ESCI20TA PO; +FLUT50DI PO; -HYDR-569 PO; +IPRA3AMP31 IH; -OMEP20CA10 PO; +OMEP20TA5 PO; +OXYB5TAB16 PO; +VALA100031 PO; -ZOL50T PO
[2020-05-26] MEDS ORDERED: LORazepam 0.5 MG tablet PO PRN (07:15)
[2020-05-26] MEDS ORDERED: normal saline 1,000 ML IV SCH (07:15)
[2020-05-26] MEDS ORDERED: diphenhydrAMINE 25mg capsule PO PRN (07:15)
[2020-05-26] MEDS ORDERED: ALBU18HF2 INH (07:53)
[2020-05-26] MEDS ORDERED: ACET-890 PO (07:56)
[2020-05-26] MEDS ORDERED: ARIP5TAB14 PO (07:58)
[2020-05-26] MEDS ORDERED: iohexol 350MG/ML 100ml bottle IV ONE (09:29)
[2020-05-26] MEDS ORDERED: nitroGLYCERIN-Tridil 50MG/D5W 250 ML IV ONE (09:29)
[2020-05-26] MEDS ORDERED: LIDOcaine 1% (10mg/ml)w/preservative injection 20ml MDV ONE (09:29)
[2020-05-26] MEDS ORDERED: verapamil 2.5 mg/ml inj IV ONE (09:29)
[2020-05-26] MEDS ORDERED: midazolam 2 mg/2 ml injection ONE (09:29)
[2020-05-26] MEDS ORDERED: heparin 1,000unit/ml 10ml vial 10 ML ONE (09:29)
[2020-05-26] MEDS ORDERED: fentaNYL/PF 50MCG/1 ML 2ML syringe ONE (09:29)
[2020-05-26] MEDS ORDERED: nitroGLYCERIN 0.4mg SUBLingual tab SL PRN (10:55)
[2020-05-26] MEDS ORDERED: ondansetron/PF 4mg/2ml inj IV PRN (10:55)
[2020-05-26] MEDS ORDERED: HYDROcodone/acetaminophen 5mg/325mg tablet PO PRN (10:55)
[2020-05-26] MEDS ORDERED: OXAZEpam 15mg capsule PO PRN (10:55)
[2020-05-26] MEDS ORDERED: proCHLORperazine 10 MG/2 ml inj IV PRN (10:55)
[2020-05-26] MEDS ORDERED: HYDROcodone/acetaminophen 10/325mg tab PO PRN (10:55)
== END 2020-05-26 14:40 | disposition home or self-care (01) ==
LOC: SSTAY O 06:48
PROVIDERS: ATTEND Student in an Organized Health Care Education/Training Program
DX: I35.0 Nonrheumatic aortic (valve) stenosis (principal); I25.10 Atherosclerotic heart disease of native coronary artery without angina pectoris; K21.9 Gastro-esophageal reflux disease without esophagitis; J44.9 Chronic obstructive pulmonary disease, unspecified; E78.5 Hyperlipidemia, unspecified; Z79.899 Other long term (current) drug therapy; Z88.5 Allergy status to narcotic agent; Z88.8 Allergy status to other drugs, medicaments and biological substances; Z88.1 Allergy status to other antibiotic agents; Z88.0 Allergy status to penicillin; Z91.041 Radiographic dye allergy status; Z79.01 Long term (current) use of anticoagulants
CPT/HCPCS: 36415; 80048; 85025; 85610; 85730; 93005; 93454; 99152; 99153; C1760; C1769; C1894; J1644; J2001; J2250; J3010; J7030; Q0163; Q9967; A4620; A5120; J3490

== ENCOUNTER 2020-06-10 10:10 | Outpatient (CLI) | payer MEDICARE, MEDICAID ==
[~2020-06-10 10:10] MED LIST changes: +ACET-890 PO; +ALBU18HF2 INH; +ARIP5TAB14 PO; -CYCL5TAB PO; -IPRA3AMP31 IH; -VALA100031 PO
== END 2020-06-10 23:59 | disposition home or self-care (01) ==
LOC: VAS 10:10
PROVIDERS: ATTEND Internal Medicine Cardiovascular Disease
DX: I35.0 Nonrheumatic aortic (valve) stenosis (principal); R06.02 Shortness of breath; I65.29 Occlusion and stenosis of unspecified carotid artery
CPT/HCPCS: 71045; 71275; 74174; 93880

== ENCOUNTER 2020-06-22 10:57 | Outpatient (CLI) | payer MEDICARE, MEDICAID ==
[~2020-06-22] VITALS: Ht 147.3 cm; Wt 60.8 kg
[2020-06-22] MEDS ORDERED: albuterol 2.5 MG/3 ML nebule NEB PRN (11:20)
== END 2020-06-22 23:59 | disposition home or self-care (01) ==
LOC: RT 10:57
PROVIDERS: ATTEND Internal Medicine Cardiovascular Disease
DX: I35.0 Nonrheumatic aortic (valve) stenosis (principal); R06.02 Shortness of breath; I65.29 Occlusion and stenosis of unspecified carotid artery
CPT/HCPCS: 94060; 94727; 94729

== ENCOUNTER 2020-10-08 07:13 | Day surgery (SDC) | payer MEDICARE, MEDICAID ==
[2020-10-01 16:36] LABS: BASOPHILS # (AUTO) 0.1 X10'3 (0-0.2); BASOPHILS % (AUTO) 0.8 % (0-1); EOSINOPHILS # (AUTO) 0.2 X10'3 (0-0.9); EOSINOPHILS % (AUTO) 2.1 % (0-6); LYMPHOCYTES # (AUTO) 1.4 X10'3 (1.1-4.8); LYMPHOCYTES % (AUTO) 15.1 % (21-51); MEAN CORPUSCULAR HGB CONC 33.7 g/dL (33.0-36.5); MEAN CORPUSCULAR VOLUME 88.9 FL (78-98); MEAN PLATELET VOLUME 7.3 FL (7.4-10.4); MONOCYTES # (AUTO) 0.6 X10'3 (0-0.9); PRE OP HEMATOCRIT 36.4 % (35.0-45.0); PRE OP HEMOGLOBIN 12.3 g/dL (12.0-16.0); PRE OP PLATELET COUNT 406 X10'3 (140-440); RED BLOOD COUNT 4.09 X10'6 (4.20-5.60); RED CELL DISTRIBUTION WIDTH 15.8 % (11.5-14.5)
[2020-10-01 16:51] LABS: ALBUMIN 3.6 G/DL (3.4-5.0); ALBUMIN/GLOBULIN RATIO 1.1 (1.1-1.5); ALKALINE PHOSPHATASE 78 IU/L (46-116); BLOOD UREA NITROGEN 22 MG/DL (7-18); BUN/CREATININE RATIO 27.5 (6.6-38.0); CALCIUM 9.1 MG/DL (8.5-10.1); CHLORIDE 106 MMOL/L (99-107); PRE OP ALT 14 U/L (30-65); PRE OP ANION GAP 12 (8-16); PRE OP AST 18 U/L (10-37); PRE OP BILIRUB, TOTAL 0.7 MG/DL (0.0-1.0); PRE OP GLUCOSE 104 MG/DL (70-104); PRE OP POTASSIUM 3.9 MMOL/L (3.4-5.1); PRE OP SODIUM 141 MMOL/L (135-145); TOTAL CARBON DIOXIDE 23.2 MMOL/L (24-32); TOTAL PROTEIN 6.9 G/DL (6.4-8.2); eGFR 70 ML/MIN
[~2020-10-08] VITALS: Ht 152.4 cm; Wt 60.8 kg
[2020-10-08] VITALS (12 sets, daily range): BP systolic 102–135; BP diastolic 60–73
[~2020-10-08 07:13] MED LIST changes: -ACET-890 PO; +ARIP2TAB20 PO; -ARIP5TAB14 PO; +ASPI81TA52 PO; +ATOR10TA70 PO; +BUPIVAcaine/PF 2.5 mg/ml (0.25%) 30ml vial ONE; +DOCUMENT DATE & TIME OF BETA-BLOCKER PO ONE; -FLUT50DI PO; +INDOCYANINE GREEN 25 MG/10 ML VIAL IV ONE; +LIDOcaine 1% 30ml preserv. free vial ONE; +LISI-790 PO; +METO25TA6 PO; -OXYB5TAB16 PO; +OXYB5TAB29 PO; +albuterol 2.5 MG/3 ML nebule NEB ONE; +famotidine 20mg tablet PO ONE; +ringers solution, lacted 1,000 ML IV SCH
[2020-10-08] MEDS ORDERED: cefazolin/dext.iso 2gm/50ml 50 ML IV ONE (07:50)
[2020-10-08] MEDS ORDERED: ringers solution, lacted 1,000 ML IV SCH (08:15)
[2020-10-08] MEDS ORDERED: proCHLORperazine 10 MG/2 ml inj IV PRN (08:15)
[2020-10-08] MEDS ORDERED: morphine 4 MG/ML inj SYRINge IV PRN (08:15)
[2020-10-08] MEDS ORDERED: morphine 2 MG/ML inj. syringe IV PRN (08:15)
[2020-10-08] MEDS ORDERED: ondansetron/PF 4mg/2ml inj IV PRN (08:15)
[2020-10-08] MEDS ORDERED: meperidine/PF 25mg/ml syringe IV PRN ×3 (08:15)
[2020-10-08] MEDS ORDERED: fentaNYL/PF 50MCG/1 ML 2ML syringe ONE (08:52)
[2020-10-08] MEDS ORDERED: midazolam 1 mg/ML 2ml injection ONE (08:52)
[2020-10-08] MEDS ORDERED: propofol inj 20 ML IV ONE (08:55)
[2020-10-08] MEDS ORDERED: rocuronium 10mg/ml inj IV ONE (08:55)
[2020-10-08] MEDS ORDERED: sevoflurane 250ml liquid IH ONE (08:58)
[2020-10-08] MEDS ORDERED: ePHEDrine 50MG/ML INJ. ONE (09:21)
[2020-10-08] MEDS ORDERED: ondansetron/PF 4mg/2ml inj ONE (09:36)
[2020-10-08] MEDS ORDERED: dexamethasone sod phosphate 4mg/ml inj. ONE (09:36)
[2020-10-08] MEDS ORDERED: neostigmine methylsulfate 1 MG/ML 10ml vial ONE (09:41)
[2020-10-08] MEDS ORDERED: glycopyrrolate 0.2mg/ml inj ONE (09:41)
--- NOTE | 2020-10-08 10:03 | NUR ---
PT. ARRIVED TO PACU, PRESENTED WITH IV IN L. HAND 20G. LR RUNNING AT 100 ML/HR. PT. AROUSABLE. MOVES ALL EXTREMITIES. PULSES NOTED IN ALL EXTREMITIES. POSITIVE CAP REFILL. DENIES PAIN. 10L. O2 VIA MASK. 4 LARGE BANDAIDS NOTED AT UPPER ABDOMEN. VSS. Addendum: 10/08/20 at 1026 by Victoria Tee RN Amended: Links added.
[2020-10-08] MEDS ORDERED: traMADol 50MG tablet PO PRN (10:05)
[2020-10-08] MEDS ORDERED: acetaminophen 325mg tablet PO ONE (10:10)
--- NOTE | 2020-10-08 11:15 | NUR ---
Pt. continues with variable o2 sats r/t positioning of pulse oximetry. pt. sitting up in bed, alert, drinking coffee. denies pain. able to follow instructions and answer questions appropriately. Addendum: 10/08/20 at 1136 by Victoria Tee RN Amended: Links added.
--- NOTE | 2020-10-08 12:15 | NUR ---
ALL DISCHARGE CRITERIA MET. VSS, O2 SATS WERE HARD TO MAINTAIN ON MONITOR DUE TO PT MOVEMENT AND POSITIONING OF SENSOR. NO SOB NOTED. PT DENIED PAIN. IV REMOVED WITHOUT COMPLICATIONS, 4 BANDAIDS ON ABD CDI. PT. ABLE TO AMBULATE. LEFT WITH ALL BELONGINGS, INSTRUCTIONS AND PRESCRIPTION FOR PAIN MEDICATION. PT. VERBALIZED UNDERSTANDING OF INSTRUCTIONS. ABLE TO TRANSFER SELF TO VEHICLE. DTR PRESENT TO RECEIVE INSTRUCTIONS AND PRESCRIPTION. Addendum: 10/08/20 at 1242 by Victoria eTe RN Amended: Links added.
== END 2020-10-08 12:15 | disposition home or self-care (01) ==
LOC: PRE-OP 07:13 → PAS 12:15
PROVIDERS: ATTEND Surgery
DX: K80.00 Calculus of gallbladder with acute cholecystitis without obstruction (principal); K42.9 Umbilical hernia without obstruction or gangrene; I25.10 Atherosclerotic heart disease of native coronary artery without angina pectoris; F32.9 Major depressive disorder, single episode, unspecified; F41.9 Anxiety disorder, unspecified; I10 Essential (primary) hypertension; J44.9 Chronic obstructive pulmonary disease, unspecified; M19.90 Unspecified osteoarthritis, unspecified site; Z20.822 Contact with and (suspected) exposure to COVID-19; Z79.899 Other long term (current) drug therapy; Z95.1 Presence of aortocoronary bypass graft; Z95.0 Presence of cardiac pacemaker; Z98.890 Other specified postprocedural states; Z86.14 Personal history of Methicillin resistant Staphylococcus aureus infection; Z88.0 Allergy status to penicillin; Z88.2 Allergy status to sulfonamides; Z91.041 Radiographic dye allergy status
CPT/HCPCS: 36415; 47563; 49585; 80053; 82948; 85025; 87635; J1100; J2001; J2250; J2405; J2704; J2710; J3010; J3490; J7120; A4215; A4618; A7000

== ENCOUNTER 2021-05-01 18:26 | Emergency (ER) | payer MEDICARE, MEDICAID ==
[~2021-05-01] VITALS: Ht 147.3 cm; Wt 63.9 kg
[~2021-05-01 18:26] MED LIST changes: -BUPIVAcaine/PF 2.5 mg/ml (0.25%) 30ml vial ONE; -DOCUMENT DATE & TIME OF BETA-BLOCKER PO ONE; -INDOCYANINE GREEN 25 MG/10 ML VIAL IV ONE; -LIDOcaine 1% 30ml preserv. free vial ONE; +LOP25T PO; -METO25TA6 PO; -albuterol 2.5 MG/3 ML nebule NEB ONE; -famotidine 20mg tablet PO ONE; -ringers solution, lacted 1,000 ML IV SCH
[2021-05-01 22:42] VITALS: BP 136/76
== END 2021-05-01 22:49 | disposition home or self-care (01) ==
LOC: ER 18:27
DX: S00.11XA Contusion of right eyelid and periocular area, initial encounter (principal); M79.641 Pain in right hand; R51.9 Headache, unspecified; R55 Syncope and collapse; G89.29 Other chronic pain; J44.9 Chronic obstructive pulmonary disease, unspecified; Z95.0 Presence of cardiac pacemaker; Z90.49 Acquired absence of other specified parts of digestive tract; Z79.82 Long term (current) use of aspirin; Z79.899 Other long term (current) drug therapy; Z88.1 Allergy status to other antibiotic agents; Z88.0 Allergy status to penicillin; Z88.2 Allergy status to sulfonamides; Z88.8 Allergy status to other drugs, medicaments and biological substances; W18.09XA Striking against other object with subsequent fall, initial encounter; Y93.89 Activity, other specified; Y92.89 Other specified places as the place of occurrence of the external cause; Y99.8 Other external cause status
CPT/HCPCS: 70450; 70486; 72125; 73130; 99285